=== PATIENT | male | born 1990 ===

== ENCOUNTER 2016-05-21 17:57 | Emergency (ER) | payer MEDICAID ==
[2016-05-21 18:03] VITALS: BP 137/88; PULSE 98; RESP 18; TEMP 97.9; O2SAT 97
--- NOTE | 2016-05-21 18:20 | EDPHY ---
H & P Stated Complaint: cough/sob sinus congestion x 1 week now with fever Time Seen by Provider: 05/21/16 18:03 HPI/ROS: CHIEF COMPLAINT: nasal congestion, headache, sore throat, earache HISTORY OF PRESENT ILLNESS: 25-year-old male presents emergency department complaining of a one-week history of nasal congestion, headache, sore throat and earache. Patient reports he has been taking Sudafed and Afrin without relief. He denies cough. Patient smokes 1 pack of cigarettes per week. He denies chest pain. Patient reports subjective fevers and chills. No nausea, vomiting or diarrhea, no abdominal pain. Patient takes metformin for elevated blood sugars. He reports he does not have diabetes. REVIEW OF SYSTEMS: A comprehensive 10 point review of systems is otherwise negative aside from elements mentioned in the history of present illness. Source: Patient Exam Limitations: No limitations - Personal History Current Tetanus/Diphtheria Vaccine: Unsure - Medical/Surgical History Hx Asthma: No Hx Chronic Respiratory Disease: No Hx Diabetes: No Hx Cardiac Disease: No Hx Renal Disease: No Hx Cirrhosis: No Hx Alcoholism: No Hx HIV/AIDS: No Hx Splenectomy or Spleen Trauma: No Other PMH: HTN, hyperlipedema, depression - Social History Smoking Status: Current every day smoker - Physical Exam Exam: General: Alert, nontoxic. ENT: Tympanic membranes clear, external auditory canal, external ear and surrounding soft tissue including over the mastoid unremarkable. Nasopharynx is injected with swelling, there is thick yellow rhinorrhea. Oropharynx with erythema. There is no exudate. No tonsillar hypertrophy. No asymmetry. The uvula is midline. No elevation of tongue. There is no hoarseness. No drooling, patient has good control of their oral secretions. No trismus. No stridor. Cardiac: Regular rate and rhythm. Respiratory: Lungs clear to auscultation bilaterally. Neurological: no meningismus. Skin: No rashes. Constitutional: Initial Vital Signs Temperature (C) 36.6 C 05/21/16 18:00 Heart Rate 98 05/21/16 18:00 Respiratory Rate 18 05/21/16 18:00 Blood Pressure 137/88 H 05/21/16 18:00 O2 Sat (%) 97 05/21/16 18:00 O2 Delivery Mode Room Air Allergies/Adverse Reactions: No Known Allergies Allergy (Verified 05/21/16 17:58) Home Medications: Medication Instructions Recorded ARIPiprazole [Abilify 5 mg (RX)] 15 mg PO HS 01/11/12 clonazePAM [klonoPIN (RX)] 1 mg PO BID PRN 01/11/12 Colace 11/21/13 [place] Carbonate ER 11/21/13 Metformin Sr 11/21/13 Amoxicillin/Clavulanate Pot 875 mg PO BID #14 tab 05/21/16 [Augmentin 875Mg] Fluticasone Nasal [Flonase Nasal 1 sprays NASAL DAILY #1 mdi 05/21/16 [place] (RX)] Medical Decision Making ED Course/Re-evaluation: 25-year-old male presents emergency department with sinusitis symptoms x8 days. Patient has facial tenderness to palpation. Vital signs are unremarkable, room air oxygen saturations are 96% he is afebrile. I will discharge the patient with a prescription for Augmentin and Flonase. Patient takes metformin for "elevated blood sugar". He states he has not been diagnosed with diabetes. Patient is given strict return precautions. I have counseled him on smoking cessation. Differential Diagnosis: Diagnosis considered but not limited to sinusitis, upper respiratory infection, pneumonia, viral syndrome, allergies Departure - Departure Disposition: Home, Routine, Self-Care Clinical Impression: Sinusitis, acute maxillary Qualifiers: Recurrence: non-recurrent Qualified Code(s): J01.00 - Acute maxillary sinusitis , unspecified Condition: Good Instructions: Sinusitis (ED) Additional Instructions: Take 600 mg of ibuprofen every 8 hours with food for 3-5 days, you can also take 650 mg of Tylenol every 8 hours. Rest, drink plenty of fluids. Use a saline nasal rinse, humidifier at night, hot steam showers. Take antibiotics as prescribed, use 1 spray of Flonase in each nostril daily for 7 days. Return to the ED for difficulty breathing, chest pain, other concerns. Stop smoking cigarettes. Referrals: [facility],. [Clinic] - As per Instructions Prescriptions: Amoxicillin/Clavulanate Pot [Augmentin 875Mg] 875 mg PO BID #14 tab Fluticasone Nasal [Flonase Nasal [place] (RX)] 1 sprays NASAL DAILY #1 mdi
[2016-05-21] MEDS ORDERED: AMOXICILLIN/CLAVULANATE POT 875/125 MG TAB PO ONE (18:23)
== END 2016-05-21 18:33 | disposition home or self-care (01) ==
DX: J01.00 Acute maxillary sinusitis, unspecified (principal); I10 Essential (primary) hypertension; F17.200 Nicotine dependence, unspecified, uncomplicated

== ENCOUNTER 2016-12-28 12:28 | Inpatient (IN) | payer MEDICAID ==
--- NOTE | 2016-12-28 12:53 | EDPHY ---
H & P Stated Complaint: [place] - Personal History Current Tetanus/Diphtheria Vaccine: Unsure Current Tetanus Diphtheria and Acellular Pertussis (TDAP): Unsure - Medical/Surgical History Hx Asthma: No Hx Chronic Respiratory Disease: No Hx Diabetes: No Hx Cardiac Disease: No Hx Renal Disease: No Hx Cirrhosis: No Hx Alcoholism: No Hx HIV/AIDS: No Hx Splenectomy or Spleen Trauma: No Other PMH: HTN, hyperlipedema, depression - Social History Smoking Status: Current every day smoker Time Seen by Provider: 12/28/16 12:30 HPI/ROS: CHIEF COMPLAINT: M1, decompensation of illness HISTORY OF PRESENT ILLNESS: 26-year-old male history of schizoaffective disorder, arrives on M1 hold. Per the M1 hold, written by Dr. Meng Hammond, the patient has s severe decompensation of illness, paranoid delusions, olfactory hallucinations, believes his skin is diseased, acting on delusions by burning himself, missing appointments and medications and is considered gravely disabled and a danger to himself. Per the patient, he adamantly denies this states that he was "minding my own business" and was then brought to the hospital. He denies suicidal or homicidal ideation. Denies hallucination in any manner. He does state that he noticed an abnormal appearance to an area on his right volar wrist which he burned and then pick that because he believes he had "an infection inside my skin." REVIEW OF SYSTEMS: A ten point review of systems was performed and is negative with the exception of the items mentioned in the HPI PAST MEDICAL & SURGICAL HISTORY: Tetanus up-to-date. Schizoaffective disorder. SOCIAL HISTORY:denies alcohol or drug use PHYSICAL EXAM (Prior to examination, patient consented to physical exam, hands were washed and my usual and customary physical exam procedures followed) 1) GENERAL: Well-developed, well-nourished, alert and oriented. He is pacing. 2) HEAD: Normocephalic, atraumatic 3) HEENT: Pupils equal, round, reactive to light bilaterally. Sclera anicteric. 4) NECK: Full range of motion, no meningeal signs. 5) LUNGS: Clear auscultation bilaterally, no wheezes, no rhonchi, no retractions. 6) HEART: Regular rate and rhythm, no murmur, no heave, no gallop. 7) ABDOMEN: No guarding, no rebound, no focal tenderness, negative McBurney's, 8) MUSCULOSKELETAL: Right volar wrist burn an abrasion without signs of infection. Soft compartments. Moving all extremities, no focal areas of tenderness, no obvious trauma. No peripheral edema or discoloration. 9) BACK: , no visual or palpable abnormality. 10) SKIN: No rash, no petechiae. 11) Psychiatric: Patient is oriented X 3, there is no agitation. DIFFERENTIAL DIAGNOSIS: in no particular order including but not limited to suicidal ideation, homicidal ideation, decompensation of schizoaffective disorder, medication noncompliance (Jovon Smart) Constitutional: Initial Vital Signs Temperature (C) 36.8 C 12/28/16 12:40 Heart Rate 98 12/28/16 12:40 Respiratory Rate 18 12/28/16 12:40 Blood Pressure 141/102 H 12/28/16 12:40 O2 Sat (%) 100 12/28/16 12:40 O2 Delivery Mode Room Air Allergies/Adverse Reactions: No Known Allergies Allergy (Verified 05/21/16 17:58) Home Medications: Medication Instructions Recorded clonazePAM [klonoPIN (RX)] 1 mg PO BID PRN 01/11/12 [place] Carbonate ER 1,350 mg HS 11/21/13 Metformin Sr 500 mg DAILY 11/21/13 Synthroid 100 mcg (*) 100 mcg DAILY 12/28/16 Zocor 20 mg PO DAILY 12/28/16 Medical Decision Making ED Course/Re-evaluation: 12:50 p.m.: Patient is currently on an M1 hold, he agrees to diagnostic studies and mental health evaluation.Care of patient under supervision of secondary supervising physician Dr Mathis . 5:00 p.m.: Care turned over to Dr. Camacho awaiting mental health evaluation. Patient is calm cooperative (Jovon Smart) 8:45 p.m.-this patient has been accepted to [address] [place] [address] Elder[address] (Fide Camacho) - Data Points Laboratory Results: Laboratory Results 12/28/16 13:38 12/28/16 13:38 12/28/16 12/28/16 12/28/16 13:38 13:38 10:10 WBC 5.63 10^3/uL 10^3/uL (3.80-9.50) RBC 5.47 10^6/uL 10^6/uL (4.40-6.38) Hgb 15.2 g/dL g/dL (13.7-17.5) Hct 46.8 % % (40.0-51.0) MCV 85.6 fL fL (81.5-99.8) MCH 27.8 pg L pg (27.9-34.1) MCHC 32.5 g/dL g/dL (32.4-36.7) RDW 14.5 % % (11.5-15.2) Plt Count 196 10^3/uL 10^3/uL (150-400) MPV 10.7 fL fL (8.7-11.7) Neut % (Auto) 61.8 % % (39.3-74.2) Lymph % (Auto) 26.6 % % (15.0-45.0) Randall % (Auto) 10.7 % % (4.5-13.0) Eos % (Auto) 0.0 % L % (0.6-7.6) Baso % (Auto) 0.7 % % (0.3-1.7) Nucleat RBC Rel Count 0.0 % % (0.0-0.2) Absolute Neuts (auto) 3.48 10^3/uL 10^3/uL (1.70-6.50) Absolute Lymphs (auto) 1.50 10^3/uL 10^3/uL (1.00-3.00) Absolute Monos (auto) 0.60 10^3/uL 10^3/uL (0.30-0.80) Absolute Eos (auto) 0.00 10^3/uL L 10^3/uL (0.03-0.40) Absolute Basos (auto) 0.04 10^3/uL 10^3/uL (0.02-0.10) Absolute Nucleated RBC 0.00 10^3/uL 10^3/uL (0-0.01) Immature Gran % 0.2 % % (0.0-1.1) Immature Gran # 0.01 10^3/uL 10^3/uL (0.00-0.10) Sodium 145 mEq/L H mEq/L (134-144) Potassium 3.9 mEq/L mEq/L (3.5-5.2) Chloride 110 mEq/L mEq/L (97-110) Carbon Dioxide 22 mEq/l mEq/l (22-31) Anion Gap 13 mEq/L mEq/L (8-16) BUN 16 mg/dL mg/dL (7-23) Creatinine 1.1 mg/dL mg/dL (0.7-1.3) Estimated GFR > 60 Glucose 96 mg/dL mg/dL (70-100) Calcium 9.6 mg/dL mg/dL (8.5-10.4) Urine Opiates Screen NEGATIVE ng/mL ng/mL (NEGATIVE) Urine Barbiturates NEGATIVE ng/mL ng/mL (NEGATIVE) Ur Phencyclidine Scrn NEGATIVE ng/mL ng/mL (NEGATIVE) Ur Amphetamines Screen NEGATIVE ng/mL ng/mL (NEGATIVE) U Benzodiazepines Scrn NEGATIVE ng/mL ng/mL (NEGATIVE) Urine Cocaine Screen NEGATIVE ng/mL ng/mL (NEGATIVE) U Marijuana (THC) Screen 790 ng/mL ng/mL (NEGATIVE) Ethyl Alcohol < 10 mg/dL mg/dL (0-10) Medications Given: Discontinued Medications Lorazepam (Ativan) 1 mg PO EDNOW ONE Stop: 12/28/16 18:35 Last Admin: 12/28/16 18:42 Dose: 1 mg Olanzapine (Zyprexa Zydis) 10 mg PO EDNOW ONE Stop: 12/28/16 18:28 Last Admin: 12/28/16 18:31 Dose: Not Given Departure - Departure Disposition: [facility] IP Clinical Impression: Suicidal ideation Schizoaffective disorder Qualifiers: Schizoaffective disorder type: bipolar Qualified Code(s): F25.0 - Schizoaffective disorder, bipolar type Condition: Fair Referrals: Patient,NotPresent [Unknown] - As per Instructions
[2016-12-28 14:02] LABS: % IMMATURE GRANULYOCYTES 0.2 % (0.0-1.1); ABSOLUTE IMMATURE GRANULOCYTES 0.01 10^3/uL (0.00-0.10); ADD DIFF? NO; ADD MORPH? NO; ADD SCAN? NO; ATYPICAL LYMPHOCYTE FLAG 0 (0-99); FRAGMENT RBC FLAG 0 (0-99); HEMATOCRIT 46.8 % (40.0-51.0); HEMOGLOBIN 15.2 g/dL (13.7-17.5); LEFT SHIFT FLG 0 (0-99); LIPEMIA HEMOLYSIS FLAG 80 (0-99); MEAN CELL HEMOGLOBIN 27.8 pg (27.9-34.1); MEAN CELL HEMOGLOBIN CONCENTR. 32.5 g/dL (32.4-36.7); MEAN CELL VOLUME 85.6 fL (81.5-99.8); MEAN PLATELET VOLUME 10.7 fL (8.7-11.7); PLATELET CLUMPS FLAG 0 (0-99); PLATELET COUNT 196 10^3/uL (150-400); RED BLOOD CELL COUNT 5.47 10^6/uL (4.40-6.38); RED CELL DISTRIBUTION WIDTH 14.5 % (11.5-15.2)
[2016-12-28 14:10] LABS: ANION GAP 13 mEq/L (8-16); CALCIUM 9.6 mg/dL (8.5-10.4); CARBON DIOXIDE 22 mEq/l (22-31); CHLORIDE 110 mEq/L (97-110); CREATININE 1.1 mg/dL (0.7-1.3); ETHANOL SERUM < 10 mg/dL (0-10); GLOMERULAR FILTRATION RATE > 60; GLUCOSE 96 mg/dL (70-100); POTASSIUM 3.9 mEq/L (3.5-5.2); SODIUM 145 mEq/L (134-144)
[2016-12-28 14:42] LABS: PHENCYCLIDINE URINE BCH < 6 ng/ml (NEGATIVE); PHENCYCLIDINE URINE BCH NEGATIVE (NEGATIVE)
[2016-12-28 14:53] LABS: TETRAHYDROCANNABINOL URINE 790 ng/mL (NEGATIVE)
[2016-12-28] MEDS ORDERED: OLANZapine DISINTEGR 10 MG TAB ONE (18:25)
[2016-12-28] MEDS ORDERED: OLANZapine DISINTEGR 10 MG TAB PO ONE (18:27)
[2016-12-28] MEDS ORDERED: LORazepam 1 MG TAB PO ONE (18:34)
[2016-12-28] MEDS ORDERED: LORazepam 0.5 MG TAB PO PRN (22:45)
[2016-12-28] MEDS ORDERED: ACETAMINOPHEN 325 MG TAB PO PRN (22:45)
[2016-12-28] MEDS ORDERED: NICOTINE POLACRILEX 2 MG GUM B PRN (22:45)
[2016-12-28] MEDS ORDERED: MAGNESIUM HYDROXIDE 30 ML UDCUP PO PRN (22:45)
[2016-12-28] MEDS ORDERED: MAG HYDROX/AL HYDROX/SIMETH 30 ML UDCUP PO PRN (22:45)
[2016-12-28] MEDS ORDERED: OLANZapine DISINTEGR 5 MG TAB PO PRN (22:45)
[2016-12-29] MEDS ORDERED: METFORMIN 500 MG PO SCH (11:30)
[2016-12-29] MEDS ORDERED: SYNTHROID 100 MCG PO SCH (11:30)
--- NOTE | 2016-12-29 12:36 | BAPA ---
[f rep st] ADMISSION PSYCHIATRIC ASSESSMENT IDENTIFICATION: This is a 26-year-old, single, male who lives in an apartment who is in the [facility] Outpatient program. His parents live in [place] and [place]. He is currently unemployed. CHIEF COMPLAINT: "I don't need to be here." HISTORY OF PRESENT ILLNESS: The patient is a poor historian. He claims that he has had stable mood, sleeping well and taking medications, eating well and functioning well in the community. However, the records from the emergency department reported that the patient apparently has had deterioration over the past 2 weeks. Apparently he got fired from his job because he was agitated, irritable and yelling at people. He apparently was not keeping up his apartment and was living in [facility]. He was missing medications. He also had been acting bizarre, making disorganized and paranoid statements. He had also made paranoid statements that he had diseased skin and then he burned his right wrist for unclear reasons, possibly due to a illogical or psychotic thinking. The patient is unable to explain further why he is here in the hospital. The records also indicate that the patient was placed on an M1 hold due to the reports of his disorganized behavior, self-injurious behavior, severe agitation and paranoia and self-harm per his treatment team at [facility]. The patient denies any change in his physical health. He denies headaches, vision changes, constipation, diarrhea, difficulty urinating or any fevers, chills, or sweats. He denies weakness or tremors. He endorses a history of bipolar manic symptoms including racing thoughts, decreased need for sleep, agitation, loud and rapid speech and impulsive behavior. He endorses a history of paranoia and thought disorganization and difficulty caring for himself. PAST PSYCHIATRIC HISTORY: The patient is a poor historian. He reports 2 psychiatric hospitalizations in the [place] area in the past as well as 1 prior hospitalization here at [facility]. Our records indicate that the patient was hospitalized in 2011, diagnosed with schizoaffective disorder and treated with Seroquel. The patient's outpatient team at [facility] reports that the patient is currently taking Clozaril 250 mg by mouth at bedtime and Violet 1350 mg by mouth at bedtime for schizoaffective disorder , bipolar type. The patient denies any history of suicide attempts. He denies any history of violence toward others. He denies any arrests other than one ticket for possession of cannabis. He denies being on probation or parole. SOCIAL HISTORY: The patient is a poor historian. He reports he is of mixed [place], [place], and descent. He reports he was raised by his parents without neglect or abuse. He graduated from high school and did 2 years of college. He is living in an apartment that is paid for by his parents. He was recently working part-time at [employer], but was fired. He has never been . Has no children. No history of service. The patient denies any history of trauma. FAMILY HISTORY: The patient reports his parents are alive and well and denies any family history of severe mental illness or suicide or substance use disorders. SUBSTANCE ABUSE HISTORY: The patient reports smoking cannabis daily and using alcohol twice a month. MEDICAL HISTORY: The patient denies any traumatic brain injuries or seizures or any chronic medical problems or surgeries other than possible sinus surgery many years ago. However, the records indicate the patient takes Zocor for hyperlipidemia and Synthroid for hypothyroidism that may be related to Violet. He is also on metformin 500 mg daily for obesity. ALLERGIES: The patient reports no known allergies to psychiatric medications or food. LABS: The patient had white blood cell count of 5.6, hemoglobin 15.2, platelet count 196 with an absolute neutrophil count of 3.48 on December 28, 2016. He also had a sodium 145, creatinine 1.1, potassium 3.9, glucose 96, calcium 9.6. Urine tox screen was positive for cannabis. Labs from [facility] indicate that at the beginning of November he had a lithium level of 0.7, a clozapine level of 110, a norclozapine level of 99 with a total norclozapine plus clozapine level of 209. PHYSICAL EXAMINATION: VITAL SIGNS: Blood pressure 108/71, pulse 72, respiratory rate 16, pulse ox 95% on room air, temperature is afebrile. He is an alert, male who is ambulatory. He is overweight. He is cooperative. He is intrusive at the nursing station and frequently yelling at the nursing staff. He has an agitated and irritable affect. His speech is rapid and loud. His thoughts are tangential with loose associations. He denies any thoughts to hurt himself or others. He is unable to give a coherent explanation as far as why he burned his right wrist. He has a bandage with a circular burn on his right wrist about the size of a nickel. He denies auditory hallucinations. He does appear paranoid regarding psychiatric medications, psychiatrist, medical treatment, and mental health treatment. His insight is poor. His judgment is impaired. Of note, the staff reports that on the unit he has been intrusive, irritable, demanding, yelling at staff, yelling at patients. Also, he had a tantrum at breakfast this morning and threw food across the room. ASSESSMENT: Schizoaffective disorder, bipolar type. Cannabis use disorder, severe. Self-inflicted burn wound to wrist. Overall, the patient has a history of severe mental illness, reportedly was living in [facility], not caring for himself, not caring for his apartment. He also had a deterioration in functioning where he was fired from his job due to disorganization, agitation and yelling. Here on the unit, he had inappropriate behavior this morning and was impulsively throwing food and has been appearing irritable and agitated frequently. He continues to appear to have mixed manic and psychotic symptoms with poor judgment. The patient also recently had self- injurious behavior by burning his wrist. PLAN OF TREATMENT: 1. The patient is on M1 hold. Will follow up short-term certification for grave disability as the patient is not willing to stay in the hospital for treatment and appears very impulsive with poor judgment. 2. Will continue the patient's Clozaril. It is unclear if he was taking it consistently or not. Nurse at [facility] reports he has been compliant with weekly pillbox pick ups. He had been taking 250 mg by mouth at bedtime; however, we will start at 50 mg in the morning and make sure the patient is not excessively sedated and then give 200 mg tonight for a total dose of 250 mg. 3. Will continue the patient's Violet. Will split the dose, 600 mg in the morning and 900 mg at night as we do not have the 450 mg tablet on formulary and his level was 0.7 in November.. Will recheck a lithium level in 3 days along with a basic metabolic panel and a TSH. 4. Will continue the Synthroid, Zocor and metformin that the patient was prescribed previously for a history of obesity, hypothyroidism that may or may not be Violet related, and a history of hyperlipidemia. Requested [facility] fax patients MAR to clarify doses of medical medications. 5. Ordered olanzapine dissolving tablet 10 mg q.6 hours p.r.n. for severe agitation or manic symptoms or paranoia on the unit. 6. Will monitor the patient's behavior, thought organization, judgment, and risk of self-harm on the unit. I will put the patient on SP1 suicide precautions as he recently burned himself. 7. The patient reportedly was on MiraLAX as an outpatient. Will order that as well. 8. I discussed with the patient the risks of cannabis causing worsening mental illness including anxiety, panic, paranoia, hallucinations and disorganized psychosis. 9. The patient will be seen by the hospitalist today or tomorrow. /[id number]/MODL MTDD
[2016-12-29] MEDS: cloZAPine 25 MG TAB PO SCH (12:39)
[2016-12-29] MEDS: LITHIUM CARBONATE 600 MG CAP PO SCH (12:39)
[2016-12-29] MEDS: metFORMIN HCL 500 MG TAB PO SCH ×2 (12:39→12:46)
[2016-12-29] MEDS: POLYETHYLENE GLYCOL 3350 17 GM PKT PO SCH ×2 (12:39→12:58)
[2016-12-29] MEDS: LEVOTHYROXINE 100 MCG TAB PO SCH (12:54)
[2016-12-29] MEDS: metFORMIN SR 500 MG TAB PO SCH (18:37)
[2016-12-29] MEDS: cloZAPine 100 MG TAB PO SCH (21:37)
[2016-12-29] MEDS: LITHIUM CARBONATE 300 MG CAP PO SCH (21:37)
--- NOTE | 2016-12-29 21:49 | GCON ---
[f rep st] CONSULTATION HOSPITALIST CONSULTATION DATE OF CONSULTATION: 12/29/2016 REFERRING PHYSICIAN: DEREK VINCENT MD REASON FOR CONSULTATION: Inpatient behavioral health medical clearance. HISTORY OF PRESENT ILLNESS: This is a 26-year-old male with a reported history of dyslipidemia, hypo thyroidism, and hypertension, and the patient denies this, who presented to the emergency department on 12/28/2016, with a chief complaint of decompensation of mental illness. He was subsequently place d on an M1 hold and admitted to the behavioral health unit for further evaluation. During the time o f my exam, the patient states he is doing well without any acute medical complaints. He tells me he does not know why he is here. PAST MEDICAL HISTORY: 1. He is a poor historian, but per records, it appears he has a history of schizoaffective disorder, bipolar type. 2. Hypothyroidism. 3. Dyslipidemia. 4. Obesity. 5. Questionable hypertension. PAST SURGICAL HISTORY: Sinus surgery. MEDICATIONS: Reviewed. Refer to vivit for details. ALLERGIES: No known drug allergies. SOCIAL HISTORY: Lives independently. He has a history of cannabis use, as well as alcohol. FAMILY HISTORY: Reviewed and noncontributory. REVIEW OF SYSTEMS: Comprehensive 10-point review of systems was done and was negative except for as mentioned in the HPI. PHYSICAL EXAMINATION: VITAL SIGNS: Blood pressure 108/71, pulse 72, respiratory rate 16, O2 saturat ion 95% on room air. Temperature afebrile. GENERAL: No acute distress. HEAD: Normocephalic, atra umatic. EYES: PERRLA. HEART: S1, S2. No murmurs, rubs, clicks, gallops, or JVD. No lower extrem ity edema. PULMONARY: Lungs are clear. No wheezes, rales, or rhonchi. ABDOMEN: Soft, nontender, nondistended. No guarding or rebound tenderness. Normoactive bowel sounds. EXTREMITIES: No clubbi ng or cyanosis. NEURO: Cranial nerves 2-12 grossly intact. No focal motor or sensory deficits. SK IN: There is a dressed burn on his right volar forearm. DIAGNOSTICS: WBC is 5.6, hemoglobin 15.3, hematocrit 46.8, platelets 196. Sodium 145, potassium 3.9 , chloride 110, BUN 16, creatinine 1.1, glucose 96. ASSESSMENT: This is a 26-year-old male, whom I have been asked to see in the behavioral health unit. He is currently on an M1 hold. PLAN: Currently, the patient appears to be medically stable for current treatment on the behavioral health unit. A lithium level is pending, as well as well as a TSH. Thank you for allowing me to participate in the care of the patient. Please call the hospitalist yudith cuadra with any further questions regarding his care. When discharged from the behavioral health unit, he should follow up with his primary care provider to further address his hyperlipidemia. /[id number]/MODL
[2016-12-29] MEDS: LORazepam 1 MG TAB PO PRN (22:47)
[2016-12-30] MEDS: LEVOTHYROXINE 100 MCG TAB PO SCH (06:01)
[2016-12-30] MEDS ORDERED: ZOCOR 20 MG PO SCH (09:00)
[2016-12-30] MEDS: LITHIUM CARBONATE 600 MG CAP PO SCH (09:22)
[2016-12-30] MEDS: cloZAPine 25 MG TAB PO SCH (09:23)
[2016-12-30] MEDS: ATORVASTATIN CALCIUM 10 MG TAB PO SCH (09:23)
[2016-12-30] MEDS: POLYETHYLENE GLYCOL 3350 17 GM PKT PO SCH (11:49)
--- NOTE | 2016-12-30 13:14 | SOAPPROG ---
SOAP Progress Note Assessment/Plan: Assessment: 26 yo man on STC, admitted from [facility] d/t manic sxs, disorganization and grave disability. Plan: 12/30/16 13:11 1. CCM - less disorganized and delusional today 2. Seen by hospitalist and has dressing on wrist where he burned himself. Subjective: Met with patient, reviewed chart and d/w staff. Patient is more appropriate, organized, coherent, seated at table, makes appropriate eye contact. He says, " I feel good and happy." He says "I have no complaints" today. Denies any SI/HI, no AH/VH. Objective: Vital Signs Temp Pulse Resp BP Pulse Ox 36.2 C 61 16 98/52 L 97 12/30/16 06:00 12/30/16 06:00 12/30/16 06:00 12/30/16 06:00 12/30/16 06:00 MSE: Calm, pleasant, fluent speech. Affect: Euthymic Mood: "Good" "Happy" TP : Goal-directed, tangential at times TC: Denies any SI/HI, AH/VH Insight/ Judgment: Poor - Time Spent With Patient Time Spent With Patient: 15" - Pending Discharge Pending Discharge Within 24 Hours: No Pending Discharge Within 48 Hours: No ICD10 Worksheet Patient Problems: Problems Problem Status Onset Schizoaffective disorder Acute Suicidal ideation Acute Schizophrenia Active
[2016-12-30] MEDS: metFORMIN SR 500 MG TAB PO SCH (16:46)
[2016-12-30] MEDS: cloZAPine 100 MG TAB PO SCH (21:04)
[2016-12-30] MEDS: LITHIUM CARBONATE 300 MG CAP PO SCH (21:04)
[2016-12-30] MEDS: LORazepam 1 MG TAB PO PRN (21:06)
[2016-12-31] MEDS: ATORVASTATIN CALCIUM 10 MG TAB PO SCH (08:33)
[2016-12-31] MEDS: LITHIUM CARBONATE 600 MG CAP PO SCH (08:33)
[2016-12-31] MEDS: cloZAPine 25 MG TAB PO SCH (08:33)
[2016-12-31] MEDS: POLYETHYLENE GLYCOL 3350 17 GM PKT PO SCH (08:49)
[2016-12-31] MEDS: LEVOTHYROXINE 100 MCG TAB PO SCH (10:52)
--- NOTE | 2016-12-31 12:18 | SOAPPROG ---
SOAP Progress Note Assessment/Plan: Assessment: 26 yo man on STC, admitted from [facility] d/t manic sxs, disorganization and grave disability. Plan: 12/30/16 13:11 1. CCM - less disorganized and delusional today 2. Seen by hospitalist and has dressing on wrist where he burned himself. 12/31/16 12:13 1. CCM - continues to show improvement 2. [place] level in AM 3. Patient does not want to go back to [facility]. He says his POC will buy him a plane ticket to return to [place] indefinitely. Subjective: Met with patient and d/w staff. Patient thought his MHH today and he wants to leave hospital. explained he is on STC, which patient accepted. However, he continues to complain about his therapist at [facility] who placed him on M-1 hold, he is still angry about that. Patient is much less disorganized , delusional and paranoid than at admission. He is more coherent and goal- directed in conversation. He says when he gets d/c'd he wants to go back to his apartment, "clean, pack and rent out my condo" then "get on plane and go to [facility] to see my family." He says he doesn't want to stay in tx with [facility] b/c "they are taking too much of my money" and "wasting my time." He denies any SI/HI, no AH/VH. Objective: Vital Signs Temp Pulse Resp BP Pulse Ox 36.7 C 62 15 122/62 H 100 12/31/16 06:00 12/31/16 06:00 12/31/16 06:00 12/31/16 06:00 12/31/16 06:00 MSE: Angry about being in hospital, but eventually accepts he is on STC and is cooperative and agreeable. Affect: Euthymic, irritable about [facility] Mood : "OK" TP: More coherent, goal-directed TC: Denies any SI/HI, no AH/VH Insight/Judgment: Poor - Time Spent With Patient Time Spent With Patient: 20" - Pending Discharge Pending Discharge Within 24 Hours: No Pending Discharge Within 48 Hours: No ICD10 Worksheet Patient Problems: Problems Problem Status Onset Schizoaffective disorder Acute Suicidal ideation Acute Schizophrenia Active
[2016-12-31] MEDS: metFORMIN SR 500 MG TAB PO SCH (17:11)
[2016-12-31] MEDS: LITHIUM CARBONATE 300 MG CAP PO SCH (17:39)
[2016-12-31] MEDS: LORazepam 1 MG TAB PO PRN (21:35)
[2016-12-31] MEDS: cloZAPine 100 MG TAB PO SCH (21:35)
[2017-01-01] MEDS: cloZAPine 25 MG TAB PO SCH (08:19)
[2017-01-01] MEDS: ATORVASTATIN CALCIUM 10 MG TAB PO SCH (08:19)
[2017-01-01] MEDS: LEVOTHYROXINE 100 MCG TAB PO SCH (08:19)
[2017-01-01] MEDS: LITHIUM CARBONATE 600 MG CAP PO SCH (08:19)
[2017-01-01] MEDS: POLYETHYLENE GLYCOL 3350 17 GM PKT PO SCH (08:39)
--- NOTE | 2017-01-01 09:04 | SOAPPROG ---
SOAP Progress Note Assessment/Plan: Assessment: Schizoaffective Disorder bipolar type Cannabis Use Disorder severe Self-inflicted burn to right wrist Patient admitted on M-1 hold for disorganized behavior, severe agitation, poor self care, cannabis abuse, and burning wrist related to somatic delusions. Patient now on short term certification. Patient appears overall more calm and organized than during admission but has some residual irritability and tangential thinking. Plan: Discussed dangers of cannabis Continue [place] 600mg + 900mg Check [place] level and BMP Continue Clozapine 50mg QAM and 200mg QHS Monitor behavior, irritability, thought organization, impulse control Contact [facility] and mother regarding discharge if stable over next 48 hours 01/01/17 09:04 Subjective: "Pretty good, ate some pizza" Patient reports sleeping and eating well over the weekend. Denies feeling irritable or agitated, denies anxiety or paranoia. Denies any fear of somatic disease. Reports he wants to discharge back to [place] where his mother lives; reports mother will pay for plane ticket and help him obtain follow up care. Denies any violent or suicidal thoughts over weekend. Endorses feeling irritable and impatient at times. Reports tolerating medications without side effects. Agrees to stop smoking cannabis after discharge. Objective: Vital Signs Temp Pulse Resp BP Pulse Ox 36.3 C 73 16 131/73 H 100 01/01/17 06:43 01/01/17 06:43 01/01/17 06:43 01/01/17 06:43 01/01/17 06:43 Alert male. Cooperative. Speech RRR, loud at times. Thoughts organized but tangential at times. Denies SI or HI or AH or paranoia. No weakness or tremors. Mood 'pretty good' affect euthymic, briefly irritable and agitated with this M.D. Limited insight, appropriate judgment. - Time Spent With Patient Time Spent With Patient: 30 minutes - Pending Discharge Pending Discharge Within 24 Hours: No Pending Discharge Within 48 Hours: Yes Pending Discharge Date: 01/03/17 Pending Discharge Time: 11:00 ICD10 Worksheet Patient Problems: Problems Problem Status Onset Schizoaffective disorder Acute Suicidal ideation Acute Schizophrenia Active
--- NOTE | 2017-01-01 11:54 | WOCRNPDOC ---
WOCRN Advanced Assessment Note - Skin Integrity Problem, Advanced Assess Right Wrist Dressing Type: Allevyn Life Dressing Description: Clean/Dry, Intact Exudate Amount: Scant Exudate Color: Reddish/Yellow Exudate Characteristic(s): Serosanguinous Integumentary Issue Intervention: Dressing Changed, Hydrogel Applied Ernesto Wound Tissue: Blanching, Intact Wound Bed Color: [place], Red Wound Bed Constitution: Granulation Tissue Wound Edges: Attached, Well Defined Site Odor: None Site Measurement - Head-to-Toe Length X Width X Depth (cm): 1.2cmx0.9cmx0.2 Skin Integrity Problem Comment: Patient with small, self inflicted burn to right wrist. Complaint from patient was that previous wound orders were " pulling skin off" with each viewing of the wound. Current allevyn dressing is excessively large. Cleaned wound bed with NS and gauze. Skin prep applied to ernesto wound skin, wound gel applied and covered with large band aid. Orders changed to reflect new plan. Wound care does not need to continue to follow this wound. Please reconsult PRN.
[2017-01-01 13:41] LABS: ANION GAP 14 mEq/L (8-16); CARBON DIOXIDE 22 mEq/l (22-31); CHLORIDE 108 mEq/L (97-110); CREATININE 1.3 mg/dL (0.7-1.3); GLOMERULAR FILTRATION RATE > 60; GLUCOSE 76 mg/dL (70-100); LITHIUM 0.9 mEq/L (0.6-1.2); POTASSIUM 4.5 mEq/L (3.5-5.2); SODIUM 144 mEq/L (134-144)
--- NOTE | 2017-01-01 15:04 | SOAPPROG ---
SOAP Progress Note Assessment/Plan: Assessment: Abnormal skin on penis. Not consistent with bacterial infection, fungal infection or STD. Might be consistent with lichen nitidus, a variant of lichen planus. Might be an atypical genital wart. Doubt that minocycline or topical antifungal has any effect on the skin lesions. Observe for resolution. If the papules change and begin to look more like a typical venereal wart and he should be counseled about safe sex. For further evaluation he could consider a biopsy which might be able to be done by primary care versus referral to genetic counselor. 01/01/17 15:00 Subjective: Asked to see patient about rash on penis. He says he gets this from time to time and he typically treated with Lotrimin cream and minocycline antibiotic. The minocycline also helps that acne on his face. He denies pain or itching. He has not seen ulceration or crusting. There been no blisters. Objective: Vital Signs Temp Pulse Resp BP Pulse Ox 36.3 C 73 16 131/73 H 100 01/01/17 06:43 01/01/17 06:43 01/01/17 06:43 01/01/17 06:43 01/01/17 06:43 Laboratory Results 01/01/17 06:30 Physical Exam - Physical Exam General Appearance: WD/WN, alert, no apparent distress Skin: other (Dorsal shaft of penis with multiple 1/2 to 1 mm flesh-colored shiny papules.) ICD10 Worksheet Patient Problems: Problems Problem Status Onset Schizoaffective disorder Acute Suicidal ideation Acute Schizophrenia Active
[2017-01-01] MEDS: metFORMIN SR 500 MG TAB PO SCH (19:57)
[2017-01-01] MEDS: cloZAPine 100 MG TAB PO SCH (20:55)
[2017-01-01] MEDS: LITHIUM CARBONATE 300 MG CAP PO SCH (20:55)
[2017-01-02] MEDS: LITHIUM CARBONATE 600 MG CAP PO SCH (08:15)
[2017-01-02] MEDS: cloZAPine 25 MG TAB PO SCH (08:15)
[2017-01-02] MEDS: ATORVASTATIN CALCIUM 10 MG TAB PO SCH (08:15)
[2017-01-02] MEDS: POLYETHYLENE GLYCOL 3350 17 GM PKT PO SCH (08:53)
[2017-01-02] MEDS: LEVOTHYROXINE 100 MCG TAB PO SCH (11:20)
--- NOTE | 2017-01-02 13:21 | SOAPPROG ---
SOAP Progress Note Assessment/Plan: Assessment: Schizoaffective Disorder bipolar type Cannabis Use Disorder severe Self-inflicted burn to right wrist Patient admitted on M-1 hold for disorganized behavior, severe agitation, poor self care, cannabis abuse, and burning wrist related to somatic delusions. Patient now on short term certification. Patient appears overall more calm and organized with better insight; patient had reduced sleep and appears distracted at times. Plan: Continue [place] 600mg + 900mg Continue Clozapine 50mg QAM and 200mg QHS Check CBC with differential in AM Discussed dangers of cannabis and importance of medication manager quality compliance behavior, irritability, thought organization, impulse control, and ability to function in groups Discharge 01/04 if stable to [facility] to seed cone picker weekly Clozapine/ [place] pillbox, patient has flight to [place] on 01/05 Mother in [place] reportedly arranged for intake at [facility] Clozapine clinic 01/10/17 and will arrange housing Reviewed above plan over phone with Dr. Hernández at [facility] 01/02/17 13:27 Subjective: "Better, less irritable, less angry" Patient reports reduced sleep. Unable to explain why he was admitted to hospital but later admits to missing medication doses and feeling irritable, anxious, agitated and paranoid. Reports currently feeling calm but later reports feeling impatient and irritated with loud patients on the unit. Denies constipation or difficulty urinating or feeling sedated or slowed. Reports goal to fly to [place] on Sunday, mother bought him a ticket and arranged for a psychiatry appointment 01/10. Agrees to take medication after discharge. Unable to explain diagnosis and purpose of psychiatric medication. Agrees to stop using cannabis. Objective: Vital Signs Temp Pulse Resp BP Pulse Ox 36.8 C 88 16 123/70 H 96 01/02/17 05:50 01/02/17 05:50 01/02/17 05:50 01/02/17 05:50 01/02/17 05:50 Laboratory Results 01/01/17 06:30 Alert male. Appears distracted and preoccupied at times. Mood: "better, less irritable, less angry"; Speech RRR with limited information. Thoughts brief organized with limited detail. Denies SI or HI. Denies AH or paranoia. Insight limited, judgment appropriate. Lab: [place] 0.9, BMP WNL, TSH 3.8 Staff report patient slept 5 hours, appears preoccupied and distracted and briefly irritable but overall cooperative with medications and unit staff. - Time Spent With Patient Time Spent With Patient: 20 minutes - Pending Discharge Pending Discharge Within 24 Hours: No Pending Discharge Within 48 Hours: Yes Pending Discharge Date: 01/04/17 Pending Discharge Time: 11:00 ICD10 Worksheet Patient Problems: Problems Problem Status Onset Schizoaffective disorder Acute Suicidal ideation Acute Schizophrenia Active
[2017-01-02] MEDS: cloZAPine 100 MG TAB PO SCH (22:08)
[2017-01-02] MEDS: LITHIUM CARBONATE 300 MG CAP PO SCH (22:08)
[2017-01-02] MEDS: metFORMIN SR 500 MG TAB PO SCH (22:11)
[2017-01-03 06:22] VITALS: PULSE 91
[2017-01-03] MEDS: cloZAPine 25 MG TAB PO SCH (08:45)
[2017-01-03] MEDS: LITHIUM CARBONATE 600 MG CAP PO SCH (08:46)
[2017-01-03] MEDS: ATORVASTATIN CALCIUM 10 MG TAB PO SCH (08:46)
[2017-01-03] MEDS: LEVOTHYROXINE 100 MCG TAB PO SCH (08:46)
[2017-01-03] MEDS: POLYETHYLENE GLYCOL 3350 17 GM PKT PO SCH (08:59)
--- NOTE | 2017-01-03 10:49 | SOAPPROG ---
SOAP Progress Note Assessment/Plan: Assessment: Schizoaffective Disorder bipolar type Cannabis Use Disorder severe Self-inflicted burn to right wrist Lichen planus on penis per hospitalist Patient admitted on M-1 hold for disorganized behavior, severe agitation, poor self care, cannabis abuse, and burning wrist related to somatic delusions. Patient now on short term certification. Patient appears overall more calm and organized than during admission, has appropriate judgment today. Plan: Continue [place] 600mg + 900mg Continue Clozapine 50mg QAM and 200mg QHS Check CBC with differential, CBC drawn this AM clotted and was not run Discussed dangers of cannabis and importance of medication director regulatory compliance behavior, irritability, thought organization, impulse control, and ability to function in groups Plan discharge tomorrow 01/04 if stable to [facility] to chart picker weekly Clozapine/[place] pillbox, patient has flight to [place] on 01/05 Mother in [place] reportedly arranged for intake at [facility] clinic 01/10/17, patient reports he will live with father short-term 01/03/17 10:49 Subjective: "I'm alright" Patient reports overall feeling 'alright, ready to leave.' Reports sleeping well overnight, had a good visit with Dr. Hernández yesterday. Patient reports his plan is to chart picker pillbox at [facility] tomorrow and go home and pack up possessions, flying to [place] on Sunday. Reports he will stay with father and mother will help him go to an intake at [facility] clinic on 01/10/17. Denies constipation or difficulty urinating. Denies any thoughts to harm himself or others. Denies any paranoia or somatic anxiety/fear. Denies hallucinations. Staff report patient calm on unit and able to attend groups without problems. Objective: Vital Signs Temp Pulse Resp BP Pulse Ox 36.7 C 91 14 125/63 H 96 01/03/17 06:00 01/03/17 06:00 01/03/17 06:00 01/03/17 06:00 01/03/17 06:00 Laboratory Results 01/03/17 06:04 01/01/17 06:30 Alert male. Calm and cooperative, fair eye contact. No tremors or weakness. Speech RRR. Mood 'alright' affect restricted. Thoughts briefly organized with poverty of detail, content. Denies SI or HI. Denies AH or paranoia. Limited insight but appropriate judgment. CBC this AM coagulated, unable to run. - Time Spent With Patient Time Spent With Patient: 20min - Pending Discharge Pending Discharge Within 24 Hours: Yes Pending Discharge Within 48 Hours: No Pending Discharge Date: 01/04/17 Pending Discharge Time: 11:00 ICD10 Worksheet Patient Problems: Problems Problem Status Onset Schizoaffective disorder Acute Suicidal ideation Acute Schizophrenia Active
[2017-01-03] MEDS: metFORMIN SR 500 MG TAB PO SCH (17:03)
[2017-01-03] MEDS: LORazepam 1 MG TAB PO PRN (21:27)
[2017-01-03] MEDS: cloZAPine 100 MG TAB PO SCH (21:27)
[2017-01-03] MEDS: LITHIUM CARBONATE 300 MG CAP PO SCH (21:27)
[2017-01-04 07:02] VITALS: BP 129/95; RESP 16; TEMP 97.2; O2SAT 100
[2017-01-04 07:52] LABS: % IMMATURE GRANULYOCYTES 0.2 % (0.0-1.1); ABSOLUTE IMMATURE GRANULOCYTES 0.01 10^3/uL (0.00-0.10); ADD DIFF? NO; ADD MORPH? NO; ADD SCAN? NO; ATYPICAL LYMPHOCYTE FLAG 10 (0-99); FRAGMENT RBC FLAG 0 (0-99); HEMATOCRIT 48.8 % (40.0-51.0); HEMOGLOBIN 15.8 g/dL (13.7-17.5); LEFT SHIFT FLG 0 (0-99); LIPEMIA HEMOLYSIS FLAG 80 (0-99); MEAN CELL HEMOGLOBIN 28.3 pg (27.9-34.1); MEAN CELL HEMOGLOBIN CONCENTR. 32.4 g/dL (32.4-36.7); MEAN CELL VOLUME 87.5 fL (81.5-99.8); MEAN PLATELET VOLUME 11.1 fL (8.7-11.7); PLATELET CLUMPS FLAG 0 (0-99); PLATELET COUNT 181 10^3/uL (150-400); RED BLOOD CELL COUNT 5.58 10^6/uL (4.40-6.38); RED CELL DISTRIBUTION WIDTH 13.6 % (11.5-15.2)
[2017-01-04] MEDS: cloZAPine 25 MG TAB PO SCH (08:59)
[2017-01-04] MEDS: ATORVASTATIN CALCIUM 10 MG TAB PO SCH (08:59)
[2017-01-04] MEDS: LITHIUM CARBONATE 600 MG CAP PO SCH (08:59)
[2017-01-04] MEDS: LEVOTHYROXINE 100 MCG TAB PO SCH (10:47)
[2017-01-04] MEDS: POLYETHYLENE GLYCOL 3350 17 GM PKT PO SCH (13:31)
--- NOTE | 2017-01-04 16:38 | BDS ---
[f rep st] BEHAVIORAL HEALTH DISCHARGE SUMMARY IDENTIFICATION: This is a 26-year-old male who lives alone in an apartment and is in treatment programming with [facility]. His parents are and live in the [place] area. BRIEF PSYCHIATRIC HISTORY: The patient has a history of prior psychiatric hospitalizations for bipolar disorder symptoms and psychotic symptoms. He was taking Clozaril 250 mg daily and [place] 1350 mg daily as an outpatient at [facility] outpatient program. The patient apparently had been previously hospitalized at [facility] in 2011. The patient denied a history of suicide attempts or violence toward others or any current legal problems, but reports 1 prior arrest for cannabis possession. The patient has chronic daily cannabis abuse. BRIEF MEDICAL HISTORY: The patient burned his right wrist prior to admission, denied traumatic brain injury or seizures. He did report a history of sinus surgery several years ago. He also takes Zocor 20 mg daily for hyperlipidemia, Synthroid 100 mcg daily for hypothyroidism and metformin 500 mg by mouth daily for metabolic syndrome. REASON FOR ADMISSION: The patient was taken to the emergency department on an M1 hold. The patient was found in his apartment to be extremely disorganized and acting bizarre by his outpatient team at [facility]. The patient apparently was living in [facility], was not keeping up his apartment, had marijuana paraphernalia. He was agitated, yelling, irritable, had disorganized thinking, made paranoid statements, had somatic delusions that his skin was infected and reported that he had burned his wrist due to concern that his skin was diseased. The patient was admitted on an M1 hold to the inpatient unit from the emergency department. INITIAL EXAM: He was an alert, male. He reported he had Khmer, German and background. He was ambulatory. He was loud, yelling with disorganized thought process. He had pressured speech. He appeared impulsive and distracted. He described his mood as "upset" and was repeatedly demanding to be discharged. He had a bandage on his right wrist from a burn that was self-inflicted. He denied auditory hallucinations, but appeared to be paranoid. He had poor insight and impaired judgment. HOSPITAL COURSE: The patient on the unit initially was loud, irritable, yelling , intrusive at the nurse's station, making numerous demands on staff repeatedly demanding to be released, not able to process information regarding the fact that he was on an M1 hold. We did place short-term certification for grave disability. The patient's outpatient team at [facility] was contacted. They report the patient had been using cannabis. He had been compliant with his weekly pill boxes, but may have missed 1-2 days' worth of medication prior to admission. The patient's lithium was restarted. However, the dose was increased to 600 mg in the morning and 900 mg at night because the level of lithium was 0.7 in November as an outpatient and the patient appeared manic on the unit. The patient's Clozaril was restarted. It was unclear if he had missed 1 or 2 or possibly 3 days' worth of medications. The patient was started on 50 mg in the morning and did not have excessive sedation at all and so then was also given 200 mg at night for a total daily dose of 250mg. The patient was restarted on Synthroid, Zocor and metformin for his medical issues. He had dressing changes and wound monitoring on the unit by the hospitalist and wound care nurse. The patient had a significant improvement. He initially had reduced sleep, agitation, irritability, pressured speech, intrusive behavior , illogical thinking. This improved dramatically with medication compliance and was more calm, less distracted, had less rapid speech, less yelling, less intrusive behavior, and more organized and logical thinking. On the unit prior to discharge, the patient was calm, able to sit through groups appropriately, was able to explain his diagnosis in his medications. He was able to problem solve a discharge plan with a field care coordinator as well as with his parents. Apparently, the patient's parents are or and live in the [place] area. The patient will fly on an airplane on January 05, will stay with his father short-term. The patient's mother will take the patient to have an intake at the [facility] on January 10. The patient had a dramatic improvement, became less impulsive, more organized, better reality testing, reduced irritability. Throughout the course of hospitalization, the patient did not require any restraints or seclusion. However, there were episodes during the first 48 hours in the unit where the patient was impulsively throwing food and appeared quite agitated and was disruptive in groups and verbally abusive to staff. LABS: On January 04, 2017, he had a white blood cell count of 6.5, hemoglobin 15.8, platelet count 181, absolute neutrophil count of 3.0. On January 01, he had a sodium 144, potassium 4.5, BUN 20, creatinine 1.3. TSH 3.8, calcium 10.0. On admission, his urine tox screen was positive for cannabis. On January 01, he had a lithium level of 0.9, and this was on 1500 mg a day. The patient has a clozapine level pending that was requested by the patient's outpatient treatment team to help guide further management of the patients clozapine dose at his psychiatry follow up appointment next week. CONSULT: The patient was seen by the hospitalist and Wound Care nurse on the unit. They reported no further treatment for the patient's burn wound on his right wrist other than a light bandage. CONDITION ON DISCHARGE: He is alert, male in no acute distress. He is ambulatory and cooperative and pleasant. He has good eye contact. His mood is "pretty good." His affect is euthymic and appropriate. His thoughts are organized with a poverty of detail, poverty of content. He denies any thoughts to hurt himself or others. He denies auditory hallucinations or paranoia. He denies any somatic fears. His memory appears fair. His judgment appears appropriate. His insight appears improved. DISCHARGE DIAGNOSIS: Schizoaffective disorder, bipolar type. Cannabis use disorder, severe. DISCHARGE MEDICATIONS: Clozaril 250 mg by mouth at bedtime, lithium 600 mg by mouth in the morning and 900 mg by mouth at bedtime. Synthroid 100 mcg by mouth daily. Zocor 20 mg by mouth at bedtime. Patient takes [id number] vitamin D3. Patient also takes MiraLAX 17 g by mouth daily for constipation. DISPOSITION: The staff on the unit will walk the patient over to [facility] to roller picker a 1 week pill box. The patient will then return home with a plan to go to the airport tomorrow to fly back to [place]. FOLLOWUP: The patient's mother reported that the patient has an intake appointment at the [facility] on January 10. LEGAL STATUS: The patient was admitted on M1 hold and then placed on a short- term certification. This will be terminated on discharge. The patient can receive outpatient treatment on a voluntary basis. /[id number]
[2017-01-06 11:06] LABS: CLOZAPINE 168 ng/mL (>350); CLOZAPINE+NORCLOZAPINE 254 ng/mL (>450); NORCLOZAPINE 86 ng/mL
== END 2017-01-04 10:45 | disposition home or self-care (01) | DRG 885 ==
LOC: EDUNIT# → BBEH 21:50
PROVIDERS: ADMIT Psychiatry & Neurology Behavioral Neurology & Neuropsychiatry
DX: F25.0 Schizoaffective disorder, bipolar type (principal); F12.10 Cannabis abuse, uncomplicated; L43.9 Lichen planus, unspecified; T23.071D Burn of unspecified degree of right wrist, subsequent encounter; E03.9 Hypothyroidism, unspecified; E78.5 Hyperlipidemia, unspecified; E66.09 Other obesity due to excess calories; Z68.30 Body mass index [BMI] 30.0-30.9, adult
CPT/HCPCS: 80159-90; 80307; G0480